=== PATIENT | male | born 1975 | race Caucasian/White ===

== ENCOUNTER 2017-01-23 18:00 | Observation (INO) | payer BC ==
[~2017-01-23] VITALS: Ht 185.4 cm; Wt 98.8 kg
[~2017-01-23 18:00] MED LIST: FLUO20CA35 PO; RTL20 PO; VITBC PO
[2017-01-23] MEDS ORDERED: CHOL100027 PO (19:00)
[2017-01-23] MEDS ORDERED: RIZA10TA18 PO (19:00)
[2017-01-23] MEDS ORDERED: CNC/36 PO (19:00)
[2017-01-23] MEDS ORDERED: OPTIRAY 320 IV PRN (19:45)
--- NOTE | 2017-01-23 20:00 | GASTROINTESTINAL CONSULTATION ---
DATE OF CONSULTATION: 01/23/2017 CHIEF COMPLAINT: Chest pain following esophageal dilation. HISTORY OF PRESENT ILLNESS: Mr. Fagan is a 41-year-old white male with a longstanding history of intermittent solid food dysphagia. Several years ago he underwent a barium study which suggested a possible Schatzki ring. The patient recalls symptoms at least from the time of his early 20s and had been persistent. Despite this, he had no weight loss. The patient was referred for an outpatient esophageal assessment and dilation today which was performed by me at [facility] outpatient endoscopy center. During that time, patient was found to have features strongly suggestive of eosinophilic esophagitis with multiple rings, furrowing and narrowing from the mid to distal esophagus and most prominent in the distal esophageal region. This underwent dilation up to 42 La[address] Savary without difficulty and subsequent biopsies of the esophagus to diagnose eosinophilic esophagitis. The patient, following the procedure tolerated water well. Upon reaching home, he had mild chest discomfort and drank some milk for which he had increasing chest pain. At one point, he reports the pain as 9/10 chest pain with some shortness of breath associated with mostly due to the intensity of the pain. He contacted the endoscopy office who referred him to the Emergency Room for which he presented to [facility]. I subsequently received a phone call from Dr. Dave Mistry at [facility] ER with the following information. The patient was found to have stable vital signs and received narcotic analgesic for which a single dose controlled his pain. On CT imaging, there was suggestion of 2 tiny foci of what is believed to be extraluminal gas adjacent to the distal esophagus. There is also mild distal esophageal thickening. There is a question of additional luminal gas to the left of the esophagus posterior to the left atrium. There is also a small amount of debris in the upper esophagus. There is mild fat stranding in the distal mediastinum but there is no significant mediastinal fluid. The heart is normal in size. There is no evidence for pneumothorax or pleural effusion and only mild dependent atelectasis. No suspicious nodes were identified. There were 2 mildly enlarged lymph nodes in the region of the fundus, largest of 11 mm in size, which was felt to be probably reactive in nature. LABORATORY STUDIES: On admission included a normal sodium of 138, potassium 3.4, BUN and creatinine of 16 and 1.1. Liver tests were normal with total bilirubin 0.9, AST 26, ALT 47, albumin of 4.0, alkaline phosphatase 101. Amylase and lipase were normal at 39 and 141respectively Troponin level was less than 0.2. CPK-MB was 2.9. White count 10.0, hemoglobin 14.9, hematocrit 42.3, MCV is 83.5, platelets 279,000. The patient had received 2 doses of Dilaudid in the Emergency Room at [place] at 13:35 and again at 16:20, and with discussion he also received a dose of ciprofloxacin IV given the patient's PENICILLIN ALLERGY. Decision was made to transfer patient to the Emergency Room here at [facility] for further evaluation and at least admission for observation with additional imaging. PAST MEDICAL HISTORY: Overall limited and includes prior inguinal hernia repair, migraine headaches, ADD, esophageal stricture, and hernia repair. ALLERGIES: PENICILLIN WHICH PRODUCES A RASH. He has used other antibiotics in the past but does not recall the names. HOME MEDICATIONS: Include fluoxetine, Concerta, vitamin B complex, vitamin D oral, and rizatriptan benzoate orally as needed. SOCIAL HISTORY: The patient denies tobacco or alcohol. He is and is accompanied by his spouse this evening. There has been no foreign travel. REVIEW OF SYSTEMS: Otherwise noncontributory based on 14-point exam except for mentioned above. There is no significant family history for gastrointestinal disorders. PHYSICAL EXAMINATION: VITAL SIGNS: On transfer by ambulance, blood pressure 103/62, heart rate 68, respirations 18. GENERAL: The patient is awake, alert and oriented x3. HEENT: Oral mucosa is moist. Sclerae anicteric, conjunctivae moist. HEART: Normal S1, S2. LUNGS: Clear to auscultation without rales, rhonchi or wheezes. There is no pain on inspiration. There is no current chest pain. ABDOMEN: Soft, nontender, nondistended with normal active bowel sounds. There is no rebound or guarding. I do not appreciate hepatosplenomegaly. EXTREMITIES: Without clubbing, cyanosis or edema. RECTAL: Deferred at this time. The patient's disc for his CT scan is currently being uploaded. IMPRESSION AND PLAN: The patient with what appears to be eosinophilic esophagitis, developed chest pain a couple hours after esophageal dilation in midmorning today. The patient's intake has been water and milk only without solids. Presently, there is no report of fever. His white count is normal and he is resting comfortably without difficulty with pain or shortness of breath. The CT scan is noted above and this will be downloaded and reviewed by our radiologist. I believe it is prudent to cover patient with broad-spectrum antibiotics and we will plan for vancomycin, gentamicin and Flagyl until an oral contrast CT can assess the esophagus for perforation. If there is no evidence of perforation then we would continue IV fluids, correcting electrolytes, continue antibiotics for 24 hours and reassess with potential discharge tomorrow with no more than clear liquid diet for the next 72 hours. IV ggt of PPI while npo. However, if there is evidence of a perforation of any degree, I believe it is prudent to consider transferring patient to [place] for either continued observation or consideration of a covered esophageal stent to occlude any potential leak in the esophagus. We will keep patient n.p.o. We will discuss with the [facility] admitting service. All details of these recommendations are discussed with patient and his family and they understand and are agreeable to this plan. Further recommendations once the CT scan is available. EDGAR
--- NOTE | 2017-01-23 20:02 | DIAGNOSTIC IMAGING REPORT ---
CT OF THE CHEST WITH IV CONTRAST CLINICAL HISTORY: Painful swallowing status post esophageal dilatation. Possible microperforation. COMPARISON STUDY: Outside chest CT dated 01/23/2017 TECHNIQUE: Following the IV administration of 118. mL of Optiray-320, CT of the thorax was performed from the thoracic inlet to the lung bases. Images are reviewed in the axial, sagittal, and coronal planes. IV contrast was administered without complication. The patient was also administered water-soluble oral contrast. CT DOSE: 563.03 mGy.cm FINDINGS: Thyroid: Imaged portions of the thyroid gland are normal in appearance. Thoracic aorta: The thoracic aorta is normal in course and caliber, noting standard 3-vessel arch anatomy. No aneurysm or dissection is seen. Pulmonary vasculature: The pulmonary trunk is normal in caliber. There are no central filling defects identified to suggest pulmonary embolus. Note that this examination was not protocoled for the evaluation of pulmonary emboli. HEART: The heart is normal in size and configuration, without pericardial effusion. Lungs and pleural spaces: No significant pleural effusions are visualized. There are by basilar atelectatic changes. Mediastinum: There is no pathologic mediastinal lymphadenopathy. Adriana: There is no pathologic hilar adenopathy. Axilla: Clear. Upper abdomen: There are mildly enlarged lymph nodes at the level of the gastrohepatic ligament measuring up to 13 mm in short axis. There is no contrast extravasation. There is mild esophageal wall thickening most pronounced distally. There are few tiny air droplets within the upper thoracic esophagus which are likely intramural. Skeletal structures: There are no lytic or blastic osseous lesions. IMPRESSION: 1. Diffuse esophageal wall thickening 2. Small superior mediastinal air bubbles, which are felt to represent intramural esophageal air 3. No evidence of contrast extravasation 4. No significant pleural effusions 5. Bibasal atelectasis 6. Mild adenopathy at the level of the gastrohepatic ligament Electronically signed by: Don Humphreys M.D. 01/23/2017 8:00 PM Dictated Date/Time: 01/23/2017 7:54 PM
[2017-01-23] MEDS ORDERED: METRONIDAZOLE / NSS 500 MG in PREMIXED NSS 100 ML IV SCH (20:30)
--- NOTE | 2017-01-23 20:52 | History and Physical ---
History & Physical Date & Time of Service: Jan 23, 2017 at 20:43 Chief Complaint: Chest Pain Primary Care Physician: Edgar Bhandari D.O.Int.Med. History of Present Illness Source: patient The patient is a pleasant 41 year old gentleman with eosinophilic esophagitis, who presents today from [facility] ED. Earlier in the he had an EGD with esophageal dilatation done by Dr. Ray. The patient was discharged home in stable condition on clear liquid diet. He was doing fine until 2 hours later, when he experienced severe, sharp anterior chest pain, rated 8/10. The pain did no radiate. The pain was non-positional. There were no alleviating or exacerbating factors. The pain was not associated with exertion or relieved with rest. He went to [facility]. Labs were grossly normal except for mild hypokalemia at 3.4. A CT scan revealed suspected microperforation of the esophagus. He was transferred to [facility] ED for evaluation by Dr. Ray. Repeat CT in the ER did not reveal contrast extravasation, suggesting that there is no leak at this time. Currently, he states that his pain is slightly, improved to 5/10. Currently, he denies, nausea, vomiting, epigasric pain, diarrhea or constipation. He has not shortness of breath, palpitations, presyncope or lower extremity swelling. He has no history of CAD and is not a smoker. Past Medical/Surgical History Medical Problems: (1) Attention deficit hyperactivity disorder Status: Chronic Family History CAD Uncle has MS Social History Smoking Status: Never Smoker Smokeless Tobacco Use: No Alcohol Use: none Drug Use: none Marital Status: Housing status: lives with family Occupational Status: employed Allergies Coded Allergies: Penicillins (Verified Allergy, Mild, rash, 04/09/13) Home Medications Scheduled Cholecalciferol (Vitamin D 1000 Unit), 1,000 INTER.UNIT PO DAILY Fluoxetine (Prozac), 40 MG PO QPM Methylphenidate Hcl (Concerta), 36 MG PO QPM Rizatriptan Benzoate (Maxalt), 10 MG PO PRN UD Vitamin B Complex (Vitamin B Complex), 1 TAB PO DAILY Review of Systems A 10 point review of systems was negative unless stated above in the HPI. Physical Exam Vital Signs Date Time Temp Pulse Resp B/P Pulse Ox O2 Delivery O2 Flow Rate FiO2 01/23/17 19:57 57 16 111/71 96 Room Air 01/23/17 18:20 58 01/23/17 18:07 93 Room Air 01/23/17 18:07 96 Nasal Cannula 2.0 01/23/17 18:07 36.7 56 16 107/68 96 Nasal Cannula 2.0 General Appearance: WD/WN, no apparent distress Head: normocephalic, atraumatic Eyes: normal inspection, EOMI ENT: hearing grossly normal, pharynx normal Neck: supple, no adenopathy, no JVD Respiratory/Chest: lungs clear, no respiratory distress Cardiovascular: regular rate, rhythm, no gallop, no murmur Abdomen/GI: normal bowel sounds, non tender, soft Back: normal inspection, no CVA tenderness Extremities/Musculoskelatal: no calf tenderness, no pedal edema Neurologic/Psych: alert, normal mood/affect, oriented x 3 Skin: normal color, warm/dry, no rash Lymphatic: no adenopathy Diagnostics Laboratory Results Per transfer records from [facility] CBC - WBC 10 - Hb 14 - Hct 42 - Plt 279 BMP - Na 138 - K 3.4 - Cl 103 - CO2 28 - BUN 16 - Cr 1.1 - Glucose [address] OF THE CHEST WITH IV CONTRAST CLINICAL HISTORY: Painful swallowing status post esophageal dilatation. Possible microperforation. COMPARISON STUDY: Outside chest CT dated 01/23/2017 TECHNIQUE: Following the IV administration of 118. mL of Optiray-320, CT of the thorax was performed from the thoracic inlet to the lung bases. Images are reviewed in the axial, sagittal, and coronal planes. IV contrast was administered without complication. The patient was also administered water-soluble oral contrast. CT DOSE: 563.03 mGy.cm FINDINGS: Thyroid: Imaged portions of the thyroid gland are normal in appearance. Thoracic aorta: The thoracic aorta is normal in course and caliber, noting standard 3-vessel arch anatomy. No aneurysm or dissection is seen. Pulmonary vasculature: The pulmonary trunk is normal in caliber. There are no central filling defects identified to suggest pulmonary embolus. Note that this examination was not protocoled for the evaluation of pulmonary emboli. HEART: The heart is normal in size and configuration, without pericardial effusion. Lungs and pleural spaces: No significant pleural effusions are visualized. There are by basilar atelectatic changes. Mediastinum: There is no pathologic mediastinal lymphadenopathy. Adriana: There is no pathologic hilar adenopathy. Axilla: Clear. Upper abdomen: There are mildly enlarged lymph nodes at the level of the gastrohepatic ligament measuring up to 13 mm in short axis. There is no contrast extravasation. There is mild esophageal wall thickening most pronounced distally. There are few tiny air droplets within the upper thoracic esophagus which are likely intramural. Skeletal structures: There are no lytic or blastic osseous lesions. IMPRESSION: 1. Diffuse esophageal wall thickening 2. Small superior mediastinal air bubbles, which are felt to represent intramural esophageal air 3. No evidence of contrast extravasation 4. No significant pleural effusions 5. Bibasal atelectasis 6. Mild adenopathy at the level of the gastrohepatic ligament Electronically signed by: Don Humphreys M.D. 01/23/2017 8:00 PM Dictated Date/Time: 01/23/2017 7:54 PM EKG NSR, no ectopy or pauses, no ST or T wave changes (on EKG from [facility] Impression Assessment and Plan 41 year old male with eosinophilic esophagitis, with chest pain post-EGD dilatation. CT scan suggests intraluminal air in the esophagus without evidence of willi perforation or fluid leakage into mediastinum. Patient is currently hemodynamically stable and will be observed overnight with GI recommendation to follow. Our plan is as follows: Chest pain post-EGD - Secondary to micro-perforation; no evidence of willi perforation - Hemodynamically stable; no evidence of infection off labs from [place] - Keep NPO including meds - Antibiotic coverage Vancomycin, Gentamicin and Flagyl IV BMP to be repeated in house to allow for appropriate dosing as needed - Protonix infusion Hypokalemia - 3.4; no EKG abnormalities - Will repeat BMP and follow Depression - PO Meds on hold - Resume Prozac once patient is off NPO status Migraines - PO Meds on hold - Resume Maxalt PRN once patient is off NPO status ADHD - PO Meds on hold - Resume Concerta once patient is off NPO status DVT prophylaxis - SCD Code Status - Level I full Code Disposition - Med/Surg Resident Physician Supervision Note: Pt seen/examined independently. I discussed the case with the resident and agree with the findings and plan as documented in the note. Any exceptions or clarifications are listed here: relatively healthy 41 y/o M undergoing dysphagia eval - had outpt EGD which may be + for eosinophilic esophagitis. Pt developed CP following procedure and was evaluated at an outside hospital. CT findings suggested perforation and he was transferred to [facility]. A CT was repeated confirming emphysema likely related to a microperforation. OE AAO x 3 S1,2 R CTA NT, ND, BS+ P: Pt admitted with instructions for broad spectrum coverage Will be kept NPO and monitored for worsening - with evidence of worsening will transfer to [place] GI service consulted and have advised on the above Documented By: Ismael Ritter Level of Care Med/Surg Resuscitation Status FULL RESUSCITATION VTE Prophylaxis VTE Risk Assessment Done? Y/N: Yes Risk Level: Moderate Given or contraindicated: Treatment not indicated
[2017-01-23 20:53] VITALS: O2SAT 96; Ht 185.4 cm; Wt 98.8 kg
[2017-01-23] MEDS ORDERED: PANTOprazole INJ 80 MG in DEXTROSE 5% 100ML IV SCH (21:00)
[2017-01-23] MEDS: MoRPHine SULFATE 4 MG/ML 1 ML CARP\\VIAL IV PRN (21:10)
[2017-01-23] MEDS ORDERED: VANCOMYCIN CONSULT ACTIVE PRN (21:15)
[2017-01-23] MEDS ORDERED: VANCOMYCIN INJ 2,450 MG in SODIUM CHLORIDE 0.9% 500ML 500 ML IV SCH (21:15)
[2017-01-23] MEDS ORDERED: GENTAMICIN CONSULT ACTIVE PRN (21:15)
[2017-01-23] MEDS ORDERED: IV FLUIDS COMPLETED PRN (21:30)
[2017-01-23 21:31] VITALS: O2SAT 96
[2017-01-23 21:42] VITALS: BP 118/65; PULSE 51; TEMP 37; O2SAT 94
[2017-01-23] MEDS ORDERED: GENTAMICIN IV SCH (22:00)
[2017-01-23] MEDS ORDERED: DEXTROSE 5% IV SCH (22:00)
[2017-01-23] MEDS: PANTOprazole INJ 40 MG in DEXTROSE 5% 100ML IV SCH (22:28)
[2017-01-23 22:59] VITALS: BP 115/71; PULSE 51; TEMP 36.9; O2SAT 94
[2017-01-23 23:08] LABS: BUN/CREATININE RATIO 15.7 (10-20); CREATININE 0.9 mg/dl (0.60-1.40); POTASSIUM 3.7 mmol/L (3.5-5.1)
[2017-01-23 23:21] LABS: CALCIUM 8.6 mg/dl (8.5-10.1)
[2017-01-24] VITALS (7 sets, daily range): BP systolic 107–118; BP diastolic 66–69; PULSE 67–86; TEMP 37.3–38.1; O2SAT 93–95
[2017-01-24] MEDS ORDERED: GENTAMICIN IV ONE (01:00)
[2017-01-24] MEDS ORDERED: DEXTROSE 5% IV ONE (01:00)
[2017-01-24] MEDS: MoRPHine SULFATE 4 MG/ML 1 ML CARP\\VIAL IV PRN ×2 (02:25→07:25)
[2017-01-24] MEDS: ACETAMINOPHEN IV 100 ML IV PRN ×2 (03:03→21:40)
[2017-01-24] MEDS: PANTOprazole INJ 40 MG in DEXTROSE 5% 100ML IV SCH ×5 (03:11→23:52)
[2017-01-24 05:21] LABS: HEMATOCRIT 38.1 % (42-52); MEAN CELL VOLUME 86.8 fL (80-100); MEAN CORPUSCULAR HEMOGLOBIN 30.1 pg (25-34); MEAN CORPUSCULAR HGB CONC 34.6 g/dl (32-36); MEAN PLATELET VOLUME 9.4 fL (7.4-10.4); PLATELET COUNT 199 K/uL (130-400); RED BLOOD COUNT 4.39 M/uL (4.7-6.1); WHITE BLOOD COUNT 10.52 K/uL (4.8-10.8)
[2017-01-24 05:48] LABS: BUN/CREATININE RATIO 13.3 (10-20); CALCIUM 8.1 mg/dl (8.5-10.1); CREATININE 0.95 mg/dl (0.60-1.40); POTASSIUM 3.7 mmol/L (3.5-5.1)
[2017-01-24] MEDS: METRONIDAZOLE / NSS 500 MG in PREMIXED NSS 100 ML IV SCH ×3 (06:06→21:42)
[2017-01-24] MEDS: VANCOMYCIN INJ 1,500 MG in SODIUM CHLORIDE 0.9% 500ML 500 ML IV SCH ×3 (06:06→21:43)
--- NOTE | 2017-01-24 11:55 | DIAGNOSTIC IMAGING REPORT ---
TWO VIEW CHEST CLINICAL HISTORY: Atypical chest pain. Fever. FINDINGS: AP and lateral chest radiographs are compared to study dated 03/14/2016 and correlated with chest CT performed 01/23/2017. The heart is enlarged. The mediastinal contour is within normal limits. Small pleural effusions are identified on the lateral view. There are bibasilar airspace opacities. The upper lobes appear clear. There is no pneumothorax. The bony thorax appears intact. IMPRESSION: 1. Cardiac enlargement without radiographic evidence of congestive failure. 2. Small pleural effusions with bibasilar airspace opacities. This likely represents atelectasis. Clinical correlation will be required. Electronically signed by: Nir Yun M.D. 01/24/2017 11:54 AM Dictated Date/Time: 01/24/2017 11:52 AM
[2017-01-24] MEDS: D5W AND 1/2NSS + 20MEQ KCL 1,000 ML IV SCH ×2 (12:25→21:40)
--- NOTE | 2017-01-24 13:11 | Pharmacy Progress Note ---
Pharmacy Antibiotic Consult Date of Service: Jan 24, 2017. Pharmacy Dosing Scope Pharmacy is consulted to initiate Vancomycin, Gentamicin, & Flagyl IV dosing therapy, order appropriate labs and adjust drug dose/frequency. Subjective The patient is a 41 year old male admitted on Jan 23, 2017 at 20:26. Objective Height (Feet): 6 Height (Inches): 1.00 Weight (Kilograms): 98.800 Lab Results (24hrs): Laboratory Tests Test 01/23/17 22:42 01/24/17 04:56 BUN/Creatinine Ratio 15.7 13.3 Blood Urea Nitrogen 14 mg/dl 13 mg/dl Creatinine 0.90 mg/dl 0.95 mg/dl White Blood Count 10.52 K/uL Item Value Date Time Random Gentamicin Level 2.00 mcg/ml 01/24/17 1114 Assessment & Plan 41yo male initiated on broad spectrum IV antibiotics with Vancomycin + Gentamicin + Flagyl for eosinophilic esophagitis. Renal function WNL. Vancomycin: * Loading dose: Vancomycin 2,450mg (25mg/kg) IV X 1 dose then * Vancomycin 1,500mg (15mg/dl) IV every 8 hours * Goal trough level estimate: between 15 - 20 mcg/mL as recommended by IDSA for complicated infectio * Check trough level prior to 4th maintenance dose 01/25/17 @ 0600 Gentamicin: * Will use preferred dosing of "extended-interval" or "pulse" dosing as pt meets criteria based on renal function * Pt actual body weight is greater than 20% of IBW therefore will use adjusted body weight for gentamicin dosing * Administer Gentamicin 610mg (7mg/kg adj bw) x 1 dose and then check a random level ~ 10 hrs after dose to confirm dosing interval * Random level = 2mcg/ml --> per nomogram pt will require a Q24hr dosing interval * Continue Gentamicin 610mg IV Q24hrs Flagyl: * Dosing is not per pharmacy consult. * Currently receiving Flagyl 500mg IV Q 8hrs which is adequate. Pharmacy will continue to follow and will adjust dose/frequency as necessary. Thank you
--- NOTE | 2017-01-24 14:45 | GASTROINTESTINAL CONSULTATION ---
DATE OF CONSULTATION: 01/24/2017 TIME: 2:15 p.m. HISTORY OF PRESENT ILLNESS: I just spoke with Mrs. Fagan (phone number [phone]) regarding on update on Mr. Fagan. I did inform that Dr. Cleaning is rounding on the service today and was provided information regarding the course of events over the last 24 hours. I also had an opportunity to review this morning as well as throughout the day of the patient's by EMR. I did explain that overnight the patient had some fevers and was given Tylenol IV along with narcotics for control of his chest discomfort. This seems to help jesus the symptoms. There are no reports of shortness of breath and except for the temperature, his vital signs have been otherwise stable. Because of the overnight fever, I did recommend and ordered a PA and lateral chest x-ray which revealed mild atelectasis bilaterally along with mild cardiac enlargement and small pleural effusions with bilateral airspace opacity that likely reflect atelectasis with clinical correlation. IMAGING DATA: The patient's CT last night did also show evidence of bibasilar atelectatic changes without a significant effusion. There was no pathologic mediastinal adenopathy or hilar adenopathy. There was no evidence of contrast extravasation, although there was inflammation. The tiny airdrop was appeared to be intramural, in the wall of the thoracic esophagus, but not specifically representing mediastinal free air. IMPRESSION: The patient's said that he was given incentive spirometry for use today. Currently, he is afebrile and his vital signs are stable. PLAN AND RECOMMENDATIONS: I made the following recommendations: I believe it is prudent to continue n.p.o. status along with IV PPI and the antibiotics for another 24 hours. We will observe the patient's clinical status throughout the evening and would favor continued admission with reassessment tomorrow. If the patient is doing well without fever, has diminished pain, then we can consider slowly advancing with clear liquids and observe his response. If this is tolerated without significant pain, we can consider advancing diet slowly as tolerated. He will be eventually on a PPI b.i.d. orally for presumed eosinophilic esophagitis, although the biopsies are pending at this time. All of her questions were answered. Additional recommendations may be available once Dr. Cleaning has an opportunity to evaluate the patient. I also informed her that I would be extraction operator this weekend, if she has any questions. All questions answered to her satisfaction. EDGAR
--- NOTE | 2017-01-24 14:57 | Hospitalist Progress Note ---
Hospitalist Progress Note Date of Service Jan 24, 2017. Subjective Pt evaluation today including: conversation w/ patient, physical exam, chart review Still c/p chest discomfort Low grade fevers Medications Medications (Trade) Dose Ordered Sig/José Route Start Time Stop Time Status Last Admin Dose Admin Vancomycin HCl 1500 mg/Sodium Chloride 530 ml @ 200 mls/hr Q8H IV 01/24/17 06:00 02/03/17 05:59 01/24/17 13:44 200 MLS/HR Gentamicin Sulfate 610 mg/ Dextrose 115.25 ml @ 100 mls/ hr TODAY@0100 ONCE IV 01/24/17 01:00 01/24/17 02:09 DC 01/24/17 01:05 100 MLS/HR Metronidazole/Prmx (Flagyl / Nss/ Premixed Nss) 100 ml @ 100 mls/hr Q8@0400,1200,2000 IV 01/23/17 20:30 01/23/17 23:14 DC 01/23/17 22:31 100 MLS/HR Morphine Sulfate 4 mg 4 mg Q4H PRN IV 01/23/17 20:30 02/06/17 20:29 01/24/17 07:25 4 MG Pantoprazole Sodium 80 mg/ Dextrose 120 ml @ 480 mls/hr TODAY@2100 IV 01/23/17 21:00 01/23/17 21:14 DC 01/23/17 22:10 480 MLS/HR Pantoprazole Sodium 40 mg/ Dextrose 100 ml @ 20 mls/hr Q5H IV 01/23/17 21:15 02/22/17 21:14 01/24/17 13:44 20 MLS/HR Vancomycin HCl 2450 mg/Sodium Chloride 549 ml @ 200 mls/hr TODAY@2115 IV 01/23/17 21:15 01/24/17 01:00 DC 01/23/17 22:31 200 MLS/HR Metronidazole 500 mg/Prmx 100 ml @ 100 mls/hr Q8H IV 01/24/17 06:00 02/03/17 05:59 01/24/17 13:44 100 MLS/HR Acetaminophen 100 ml @ 400 mls/hr Q8H PRN IV 01/24/17 03:00 02/23/17 02:59 01/24/17 03:03 400 MLS/HR Potassium Chloride/Dextrose/ Sod Cl (D5W And 1/2nss + 20meq KCl) 1,000 ml @ 100 mls/hr Q10H IV 01/24/17 12:00 01/25/17 11:59 01/24/17 12:25 100 MLS/HR Objective Vital Signs Date Time Temp Pulse Resp B/P Pulse Ox O2 Delivery O2 Flow Rate FiO2 01/24/17 07:24 37.5 71 16 107/69 95 Room Air 01/24/17 04:00 37.6 01/24/17 03:54 38.0 86 16 117/66 93 Room Air 01/24/17 02:20 38.1 01/24/17 01:15 37.4 01/23/17 23:55 Room Air 01/23/17 22:59 36.9 51 15 115/71 94 Room Air 01/23/17 21:45 Room Air 01/23/17 21:42 37.0 51 16 118/65 94 Room Air 01/23/17 21:31 56 20 107/73 96 Room Air 01/23/17 20:53 96 Room Air 01/23/17 19:57 57 16 111/71 96 Room Air 01/23/17 18:20 58 01/23/17 18:07 93 Room Air 01/23/17 18:07 96 Nasal Cannula 2.0 01/23/17 18:07 36.7 56 16 107/68 96 Nasal Cannula 2.0 Laboratory Results Last 24 Hours Test 01/23/17 22:42 01/24/17 04:56 01/24/17 11:14 Sodium Level 139 mmol/L 138 mmol/L Potassium Level 3.7 mmol/L 3.7 mmol/L Chloride Level 103 mmol/L 105 mmol/L Carbon Dioxide Level 29 mmol/L 27 mmol/L Anion Gap 7.0 mmol/L 6.0 mmol/L Blood Urea Nitrogen 14 mg/dl 13 mg/dl Creatinine 0.90 mg/dl 0.95 mg/dl Est Creatinine Clear Calc Drug Dose 132.3 ml/min 125.3 ml/min Estimated GFR () 121.7 114.0 Estimated GFR (Non- 105.0 98.3 BUN/Creatinine Ratio 15.7 13.3 Random Glucose 95 mg/dl 95 mg/dl Calcium Level 8.6 mg/dl 8.1 mg/dl White Blood Count 10.52 K/uL Red Blood Count 4.39 M/uL Hemoglobin 13.2 g/dL Hematocrit 38.1 % Mean Corpuscular Volume 86.8 fL Mean Corpuscular Hemoglobin 30.1 pg Mean Corpuscular Hemoglobin Concent 34.6 g/dl RDW Standard Deviation 40.2 fL RDW Coefficient of Variation 12.5 % Platelet Count 199 K/uL Mean Platelet Volume 9.4 fL Random Gentamicin Level 2.00 mcg/ml Diagnostic Results CLINICAL HISTORY: Atypical chest pain. Fever. FINDINGS: AP and lateral chest radiographs are compared to study dated 03/14/2016 and correlated with chest CT performed 01/23/2017. The heart is enlarged. The mediastinal contour is within normal limits. Small pleural effusions are identified on the lateral view. There are bibasilar airspace opacities. The upper lobes appear clear. There is no pneumothorax. The bony thorax appears intact. IMPRESSION: 1. Cardiac enlargement without radiographic evidence of congestive failure. 2. Small pleural effusions with bibasilar airspace opacities. This likely represents atelectasis. Clinical correlation will be required. Electronically signed by: Nir Yun M.D. 01/24/2017 11:54 AM [~ rep ct add3]] CT OF THE CHEST WITH IV CONTRAST CLINICAL HISTORY: Painful swallowing status post esophageal dilatation. Possible microperforation. COMPARISON STUDY: Outside chest CT dated 01/23/2017 TECHNIQUE: Following the IV administration of 118. mL of Optiray-320, CT of the thorax was performed from the thoracic inlet to the lung bases. Images are reviewed in the axial, sagittal, and coronal planes. IV contrast was administered without complication. The patient was also administered water-soluble oral contrast. CT DOSE: 563.03 mGy.cm FINDINGS: Thyroid: Imaged portions of the thyroid gland are normal in appearance. Thoracic aorta: The thoracic aorta is normal in course and caliber, noting standard 3-vessel arch anatomy. No aneurysm or dissection is seen. Pulmonary vasculature: The pulmonary trunk is normal in caliber. There are no central filling defects identified to suggest pulmonary embolus. Note that this examination was not protocoled for the evaluation of pulmonary emboli. HEART: The heart is normal in size and configuration, without pericardial effusion. Lungs and pleural spaces: No significant pleural effusions are visualized. There are by basilar atelectatic changes. Mediastinum: There is no pathologic mediastinal lymphadenopathy. Adriana: There is no pathologic hilar adenopathy. Axilla: Clear. Upper abdomen: There are mildly enlarged lymph nodes at the level of the gastrohepatic ligament measuring up to 13 mm in short axis. There is no contrast extravasation. There is mild esophageal wall thickening most pronounced distally. There are few tiny air droplets within the upper thoracic esophagus which are likely intramural. Skeletal structures: There are no lytic or blastic osseous lesions. IMPRESSION: 1. Diffuse esophageal wall thickening 2. Small superior mediastinal air bubbles, which are felt to represent intramural esophageal air 3. No evidence of contrast extravasation 4. No significant pleural effusions 5. Bibasal atelectasis 6. Mild adenopathy at the level of the gastrohepatic ligament Electronically signed by: Don Humphreys M.D. 01/23/2017 8:00 PM Dictated Date/Time: 01/23/2017 7:54 PM Assessment and Plan 41 year old male with eosinophilic esophagitis, with chest pain post-EGD dilatation. CT scan suggests intraluminal air in the esophagus without evidence of willi perforation or fluid leakage into mediastinum. Patient is currently hemodynamically stable and will be observed overnight with GI recommendation to follow. Our plan is as follows: Chest pain post-EGD - Secondary to micro-perforation; no evidence of willi perforation - Hemodynamically stable; no evidence of infection off labs from [facility] - Keep NPO including meds, start clears when ok with GI. GI input appreciated - Antibiotic coverage Vancomycin, Gentamicin and Flagyl IV - Protonix infusion Depression - PO Meds on hold - Resume Prozac once patient is off NPO status Migraines - PO Meds on hold - Resume Maxalt PRN once patient is off NPO status ADHD - PO Meds on hold - Resume Concerta once patient is off NPO status DVT prophylaxis - SCD Code Status - Level I full Code
[2017-01-24] MEDS ORDERED: LIDOCAINE HCL 2% VISC SOLN 20 ML UDC PO PRN (15:45)
--- NOTE | 2017-01-24 15:53 | PROGRESS NOTE ---
DATE: 01/24/2017 SUBJECTIVE: The patient continues to complain of chest pain. He is taking just ice chips and otherwise is n.p.o. OBJECTIVE: His vital signs are normal. Temperature is 37.6, blood pressure is 118/69, pulse 81 regular, room air saturation 94%. IMAGING DATA: Chest x-ray today was normal. There was no evidence of free air in the mediastinum. LABORATORY DATA: Shows a white count of 10.52, hemoglobin 13.2. IMPRESSION AND PLAN: The patient had esophageal dilation followed by pain in the chest and some air in the esophagus. The patient is doing relatively well on conservative measures. He continues to be n.p.o. and on IV fluids and antibiotics. I plan on adding some viscous Xylocaine orally to help soothe his esophagus and reduce some of his pain. Dr. Ray will be covering this weekend.
[2017-01-25] MEDS: PANTOprazole INJ 40 MG in DEXTROSE 5% 100ML IV SCH ×3 (04:31→15:07)
[2017-01-25] MEDS ORDERED: DEXTROSE 5% IV SCH (05:00)
[2017-01-25] MEDS ORDERED: GENTAMICIN IV SCH (05:00)
[2017-01-25] MEDS ORDERED: VANCOMYCIN TROUGH SCH (05:30)
[2017-01-25] MEDS: ACETAMINOPHEN IV 100 ML IV PRN (05:42)
[2017-01-25] MEDS: METRONIDAZOLE / NSS 500 MG in PREMIXED NSS 100 ML IV SCH ×2 (05:43→15:07)
[2017-01-25 05:59] LABS: BASO % 0.3 %; BASO ABS # 0.02 K/uL (0-0.2); COMPLETE YES; EOS % 0.7 %; HEMATOCRIT 36.9 % (42-52); IG% 0.1 %; LYMPH % 15.9 %; LYMPH ABS # 1.09 K/uL (1.2-3.4); MEAN CELL VOLUME 87.2 fL (80-100); MEAN CORPUSCULAR HEMOGLOBIN 30.3 pg (25-34); MEAN CORPUSCULAR HGB CONC 34.7 g/dl (32-36); MEAN PLATELET VOLUME 9.5 fL (7.4-10.4); MONO % 10.5 %; NEUT % 72.5 %; PLATELET COUNT 190 K/uL (130-400); RED BLOOD COUNT 4.23 M/uL (4.7-6.1); WHITE BLOOD COUNT 6.87 K/uL (4.8-10.8)
[2017-01-25] MEDS: VANCOMYCIN INJ 1,500 MG in SODIUM CHLORIDE 0.9% 500ML 500 ML IV SCH ×2 (06:12→15:07)
[2017-01-25 06:28] LABS: BUN/CREATININE RATIO 9.3 (10-20); CALCIUM 8.2 mg/dl (8.5-10.1); CREATININE 0.9 mg/dl (0.60-1.40); POTASSIUM 3.8 mmol/L (3.5-5.1)
[2017-01-25 06:31] LABS: ALB/GLOB RATIO 1.1 (0.9-2)
[2017-01-25 06:59] VITALS: BP 118/57; PULSE 63; TEMP 37.2; O2SAT 97
[2017-01-25] MEDS: D5W AND 1/2NSS + 20MEQ KCL 1,000 ML IV SCH (09:21)
--- NOTE | 2017-01-25 11:17 | Pharmacy Progress Note ---
Pharmacy Antibiotic Prog Note Date of Service Jan 25, 2017. Subjective The patient is currently receiving vancomycin 1500 mg iv q 8 hrs, gentamicin 610 mg daily, and flagyl 500 mg q 8 hrs The patient is currently on day # 2 of IV therapy. Objective Height (Feet): 6 Height (Inches): 1.00 Weight (Kilograms): 98.800 Levels: Item Value Date Time Vancomycin Level Trough 16.9 mcg/ml 01/25/17 0530 Lab Results (24hrs): Laboratory Tests Test 01/25/17 05:30 BUN/Creatinine Ratio 9.3 Blood Urea Nitrogen 8 mg/dl Creatinine 0.90 mg/dl White Blood Count 6.87 K/uL Red Blood Count 4.23 M/uL Hemoglobin 12.8 g/dL Hematocrit 36.9 % Mean Corpuscular Volume 87.2 fL Mean Corpuscular Hemoglobin 30.3 pg Mean Corpuscular Hemoglobin Concent 34.7 g/dl Platelet Count 190 K/uL Mean Platelet Volume 9.5 fL Neutrophils (%) (Auto) 72.5 % Lymphocytes (%) (Auto) 15.9 % Monocytes (%) (Auto) 10.5 % Eosinophils (%) (Auto) 0.7 % Basophils (%) (Auto) 0.3 % Neutrophils # (Auto) 4.98 K/uL Lymphocytes # (Auto) 1.09 K/uL Monocytes # (Auto) 0.72 K/uL Eosinophils # (Auto) 0.05 K/uL Basophils # (Auto) 0.02 K/uL Assessment & Plan Patient on vancomycin, gentamicin, and flagyl for eosinophilic esophagitis. Vancomycin: * Trough level this am was therapeutic at ~17 mcg/ml (goal 15-20 mcg/ml) * Will continue with current regimen of 1500 mg iv q 8 hrs * Scr remains stable, CrCl >120 ml/min Gentamicin: * dose appropriate based upon nomogram/random level; continue with same Pharmacy will continue to follow and will adjust dose/frequency as necessary. Thank you
--- NOTE | 2017-01-25 14:00 | GASTROENTEROLOGY PROGRESS NOTE ---
DATE: 01/25/2017 SUBJECTIVE: The patient did well overnight, did not have any temperature spikes, has no further chest pain for approximately 24 hours, although remains n.p.o. He is on IV fluids, triple antibiotics prophylactically for his initial presentation to [facility] and here following the EGD dilation with presumed eosinophilic esophagitis. The patient is hungry and would like to advance his diet if possible. LABORATORY STUDIES: Today's white count on January 25 is 6.8 with hemoglobin of 12.8 and 36.9, platelets 190,000. His BUN and creatinine are 8 and 0.9. Potassium is normal at 3.8. LFTs are normal. Calcium is slightly low at 8.2. Gentamicin and vancomycin levels were noted. The patient has been using his incentive spirometry. REVIEW OF SYSTEMS: Otherwise noncontributory. The patient is passing urine and had scant bowel movements. The patient denies any cough, chest pain or shortness of breath and is resting comfortably in bed with his accompanying him in the chair. PHYSICAL EXAMINATION: Today, VITAL SIGNS: Blood pressure 118/57, respirations 16, pulse 63, temperature 37.2 and was 37.3 last night at 11:00 p.m. The patient is 97% on room air. GENERAL: The patient is awake, alert and oriented x3. HEENT: Sclerae are anicteric, conjunctiva moist. Oral mucosa moist. HEART: Normal S1, S2. LUNGS: Clear to auscultation. ABDOMEN: Soft, flat, nontender, nondistended with normal bowel sounds, no rebound or guarding. I do not appreciate hepatosplenomegaly. CHEST: There is no chest discomfort with palpation along the sternum. LUNGS: Clear to auscultation. EXTREMITIES: Without edema. IMPRESSION: The patient is status post EGD dilation with chest pain subsequent to the dilation. ER assessment at [place] suggested perhaps air in the mediastinum, although a followup oral contrast study later that evening at [facility] did not demonstrate evidence of extravasation or free air in the mediastinum. There was a suggestion of air in the intramural portion of the esophagus. I made the following recommendations. I believe it is reasonable to advance the patient's diet and begin with room temperature water to see if this is tolerated. He did not like the taste of viscous Xylocaine that was attempted yesterday. If this is tolerated, then he can advance to a full clear liquid diet that is absent of any citrus or acidic type component (citrus fruits, tomato sauces eventually). Later this afternoon a full liquid diet can be achieved and if again tolerated, a soft diet can be advanced. If this is tolerated, tentative discharge later this evening is reasonable. We will discontinue his IV antibiotic and change to oral version of Flagyl and ciprofloxacin. Cipro is 500 mg twice daily and Flagyl 250 mg 3 times daily, each for 5 days. In addition, the patient should be on omeprazole 40 mg twice daily. If the capsule is not well tolerated, the contents can be placed in applesauce and taken by this route. We would keep the patient on a soft diet for at least 48 hours upon discharge and then he can slowly advance to his baseline diet if tolerated and does not experience any chest pain, significant dysphagia or odynophagia.
[2017-01-25 14:55] VITALS: BP 131/82; PULSE 62; TEMP 37; O2SAT 96
[2017-01-25] MEDS ORDERED: NURSING VERBAL MED ORDER ONE (15:45)
[2017-01-25] MEDS ORDERED: RIZATRIPTAN BENZOATE 10 MG TAB PO ONE (17:45)
--- NOTE | 2017-01-25 17:49 | Hospitalist Progress Note ---
Hospitalist Progress Note Date of Service Jan 25, 2017. (Nir Deluna PA-C) Subjective Pt evaluation today including: conversation w/ patient, conversation w/ family , physical exam, chart review, lab review, review of studies Pain: Migraine headache - no other reported pain. 41 yo male admitted with esophageal stricture. Underwent EGD and esophageal dilatation with Dr. Ray. His impression is eosinophilic esophagitis. Patient reports having dysphagia for almost 20 years. Since procedure, patient is tolerating clear liquids. Will advance to full liquid diet and advance as tolerated. Change IV abx to oral. Patient with migraine headache X 2 days. Requesting Maxalt. No other acute complaints Constitutional: No fever Respiratory: No cough, No dyspnea on exertion, No hemoptysis, No shortness of breath, No sputum, No wheezing Cardiovascular: No chest pain Abdomen: No diarrhea, No nausea, No vomiting Musculoskeletal: No calf pain, No muscle pain Male : No hematuria Heme: No abnormal bleeding/bruising Skin: No rash All Other Systems: Reviewed and Negative (Nir Deluna PA-C) Medications Current Inpatient Medications Medications (Trade) Dose Ordered Sig/José Route Start Time Stop Time Status Last Admin Dose Admin Ioversol (Optiray 320) 111 ml UD PRN IV 01/23/17 19:45 01/27/17 19:44 Morphine Sulfate (MoRPHine SULFATE INJ) 4 mg Q4H PRN IV 01/23/17 20:30 02/06/17 20:29 01/24/17 07:25 4 MG Miscellaneous 1 ea 1 ea PRN PRN N/A 01/23/17 21:30 01/23/18 21:29 01/25/17 09:22 1 EA Acetaminophen (Ofirmev Iv) 100 ml @ 400 mls/hr Q8H PRN IV 01/24/17 03:00 02/23/17 02:59 01/25/17 05:42 400 MLS/HR Lidocaine HCl (Viscous Lidocaine 2% Soln) 20 ml Q4HWA PRN PO 01/24/17 15:45 02/23/17 15:44 01/24/17 19:10 20 ML Ciprofloxacin (Cipro Tab) 500 mg BID PO 01/25/17 21:00 01/30/17 09:01 Metronidazole (Flagyl Tab) 250 mg TID PO 01/25/17 21:00 01/30/17 14:01 Pantoprazole Sodium (Protonix Tab) 40 mg BID PO 01/25/17 21:00 02/24/17 20:59 Rizatriptan Benzoate (Maxalt Tab) 10 mg 2200 PRN PO 01/25/17 20:00 01/25/17 23:59 (Nir Deluna PA-C) Objective Vital Signs Date Time Temp Pulse Resp B/P Pulse Ox O2 Delivery O2 Flow Rate FiO2 01/25/17 14:55 37.0 62 16 131/82 96 Room Air 96.0 01/25/17 06:59 37.2 63 16 118/57 97 Room Air 01/24/17 23:00 37.3 67 18 114/67 95 Room Air 01/24/17 21:40 Room Air (Nir Deluna PA-C) Physical Exam Notes: GENERAL : No acute distress EYES: No icterus, gaze conjugate NOSE: No evidence of epistaxis MOUTH: No lesions or candidiasis NECK: Supple LUNGS: CTA B/L, no wheezes, rales or rhonchi HEART: Regular, rate controlled ABDOMEN: Soft, NT, ND, BS Present EXTREMITIES: No LE edema, pedal pulses intact NEURO: A&OX3 (Nir Deluna PA-C) Laboratory Results Last 24 Hours Test 01/25/17 05:30 White Blood Count 6.87 K/uL Red Blood Count 4.23 M/uL Hemoglobin 12.8 g/dL Hematocrit 36.9 % Mean Corpuscular Volume 87.2 fL Mean Corpuscular Hemoglobin 30.3 pg Mean Corpuscular Hemoglobin Concent 34.7 g/dl Platelet Count 190 K/uL Mean Platelet Volume 9.5 fL Neutrophils (%) (Auto) 72.5 % Lymphocytes (%) (Auto) 15.9 % Monocytes (%) (Auto) 10.5 % Eosinophils (%) (Auto) 0.7 % Basophils (%) (Auto) 0.3 % Neutrophils # (Auto) 4.98 K/uL Lymphocytes # (Auto) 1.09 K/uL Monocytes # (Auto) 0.72 K/uL Eosinophils # (Auto) 0.05 K/uL Basophils # (Auto) 0.02 K/uL RDW Standard Deviation 40.4 fL RDW Coefficient of Variation 12.6 % Immature Granulocyte % (Auto) 0.1 % Immature Granulocyte # (Auto) 0.01 K/uL Sodium Level 142 mmol/L Potassium Level 3.8 mmol/L Chloride Level 109 mmol/L Carbon Dioxide Level 27 mmol/L Anion Gap 6.0 mmol/L Blood Urea Nitrogen 8 mg/dl Creatinine 0.90 mg/dl Est Creatinine Clear Calc Drug Dose 132.3 ml/min Estimated GFR () 121.7 Estimated GFR (Non- 105.0 BUN/Creatinine Ratio 9.3 Random Glucose 107 mg/dl Calcium Level 8.2 mg/dl Total Bilirubin 0.6 mg/dl Aspartate Amino Transf (AST/SGOT) 15 U/L Alanine Aminotransferase (ALT/SGPT) 29 U/L Alkaline Phosphatase 82 U/L Total Protein 6.3 gm/dl Albumin 3.3 gm/dl Globulin 3.0 gm/dl Albumin/Globulin Ratio 1.1 Vancomycin Level Trough 16.9 mcg/ml (Nir Deluna PA-C) Diagnostic Results CT OF THE CHEST WITH IV CONTRAST CLINICAL HISTORY: Painful swallowing status post esophageal dilatation. Possible microperforation. COMPARISON STUDY: Outside chest CT dated 01/23/2017 TECHNIQUE: Following the IV administration of 118. mL of Optiray-320, CT of the thorax was performed from the thoracic inlet to the lung bases. Images are reviewed in the axial, sagittal, and coronal planes. IV contrast was administered without complication. The patient was also administered water-soluble oral contrast. CT DOSE: 563.03 mGy.cm FINDINGS: Thyroid: Imaged portions of the thyroid gland are normal in appearance. Thoracic aorta: The thoracic aorta is normal in course and caliber, noting standard 3-vessel arch anatomy. No aneurysm or dissection is seen. Pulmonary vasculature: The pulmonary trunk is normal in caliber. There are no central filling defects identified to suggest pulmonary embolus. Note that this examination was not protocoled for the evaluation of pulmonary emboli. HEART: The heart is normal in size and configuration, without pericardial effusion. Lungs and pleural spaces: No significant pleural effusions are visualized. There are by basilar atelectatic changes. Mediastinum: There is no pathologic mediastinal lymphadenopathy. Adriana: There is no pathologic hilar adenopathy. Axilla: Clear. Upper abdomen: There are mildly enlarged lymph nodes at the level of the gastrohepatic ligament measuring up to 13 mm in short axis. There is no contrast extravasation. There is mild esophageal wall thickening most pronounced distally. There are few tiny air droplets within the upper thoracic esophagus which are likely intramural. Skeletal structures: There are no lytic or blastic osseous lesions. IMPRESSION: 1. Diffuse esophageal wall thickening 2. Small superior mediastinal air bubbles, which are felt to represent intramural esophageal air 3. No evidence of contrast extravasation 4. No significant pleural effusions 5. Bibasal atelectasis 6. Mild adenopathy at the level of the gastrohepatic ligament Electronically signed by: Don Humphreys M.D. 01/23/2017 8:00 PM Dictated Date/Time: 01/23/2017 7:54 PM TWO VIEW CHEST CLINICAL HISTORY: Atypical chest pain. Fever. FINDINGS: AP and lateral chest radiographs are compared to study dated 03/14/2016 and correlated with chest CT performed 01/23/2017. The heart is enlarged. The mediastinal contour is within normal limits. Small pleural effusions are identified on the lateral view. There are bibasilar airspace opacities. The upper lobes appear clear. There is no pneumothorax. The bony thorax appears intact. IMPRESSION: 1. Cardiac enlargement without radiographic evidence of congestive failure. 2. Small pleural effusions with bibasilar airspace opacities. This likely represents atelectasis. Clinical correlation will be required. Electronically signed by: Nir Yun M.D. 01/24/2017 11:54 AM Dictated Date/Time: 01/24/2017 11:52 AM (Nir Deluna PA-C) Assessment and Plan EOSINOPHILIC ESOPHAGITIS EGD done in [place] with question of esophageal perforation Repeat CT scan done at [facility] showed no extravasation of CT dye Patient seen by Dr. Ray - appreciate his input Advance diet as tolerated to a soft diet Maintain soft diet for at least 48 hours and then advance to normal diet as tolerated Follow-up outpatient with Dr. Ray Metronidazole and ciprofloxacin by mouth for five days and stop Omeprazole 40 mg by mouth twice a day until changed by GI Culture with recurrent chest pain, significant dysphagia, odynophagia MIGRAINE HEADACHES Maxalt 10 mg oral dissolving tablet per instructions GI PROPHYLAXIS Omeprazole DVT PROPHYLAXIS Increase ambulation as tolerated Thank you for including us in the care of this patient. Please refer to Dr. Aquino's addendum for further recommendations Discharge planning: home (Nir Deluna PA-C) Reviewed: Pt Seen/Exam by Me (Grace Aquino MD) History Please see discharge summary done on the same day (Grace Aquino MD)
[2017-01-25 19:16] VITALS: BP 131/82; PULSE 62; TEMP 37; O2SAT 96
[2017-01-25] MEDS ORDERED: MTR250 PO (19:29)
[2017-01-25] MEDS ORDERED: OMEP1POW2 PO (19:29)
[2017-01-25] MEDS ORDERED: CPR500 PO (19:29)
--- NOTE | 2017-01-25 19:30 | Discharge Summary ---
Discharge Summary Date of Service Jan 25, 2017. (Nir Deluna PA-C) Discharge Summary Admission Date: Jan 23, 2017 at 20:26 Discharge Date: Jan 25, 2017 Discharge Disposition: Home Principal Diagnosis: Mediastinal pneumonitis Problems/Secondary Diagnoses: Eosinophilic esophagitis Esophageal stricture Procedures: CT chest Chest x-ray Peripheral IV placement Infusion of IV antibiotics Consultations: Gastroenterology - Dr. Ray (Nir Deluna PA-C) Medication Reconciliation New Medications: Omeprazole (Bulk) (Omeprazole) 1 Pow Pow 40 MG PO BID for 30 Days, #60 TAB Ciprofloxacin (Ciprofloxacin HCl) 500 Mg Tab 500 MG PO BID for 5 Days, #10 TAB Metronidazole (Metronidazole) 250 Mg Tab 250 MG PO TID for 5 Days, #15 TAB Continued Medications: Cholecalciferol (Vitamin D 1000 Unit) 1,000 Unit Cap 1000 INTER.UNIT PO DAILY, CAP Fluoxetine (Prozac) 20 Mg Cap 40 MG PO QPM, CAP Methylphenidate Hcl (Concerta) 36 Mg Tab 36 MG PO QPM, TAB Rizatriptan Benzoate (Maxalt) 10 Mg Tab 10 MG PO PRN UD for Migraine, TAB Vitamin B Complex (Vitamin B Complex) 1 Tab Tab 1 TAB PO DAILY Discharge Exam Physical Exam Notes: GENERAL : No acute distress EYES: No icterus, gaze conjugate NOSE: No evidence of epistaxis MOUTH: No lesions or candidiasis NECK: Supple LUNGS: CTA B/L, no wheezes, rales or rhonchi HEART: Regular, rate controlled ABDOMEN: Soft, NT, ND, BS Present EXTREMITIES: No LE edema, pedal pulses intact NEURO: A&OX3 (Nir Deluna PA-C) Hospital Course Patient transferred to [facility] from [facility] for question of mediastinal free air status post esophageal dilatation. Repeat CT scan at [facility] showed some very small air bubbles that appeared to be intramural. There is no evidence of free air or extravasation of IV contrast on CT scan. Consultation was placed with Dr. Ray. No further intervention was required. Patient was started on IV antibiotics which were converted to oral and suggested be continued for five days as listed below. Patient also was advised to start omeprazole twice daily until follow-up with GI. Patient had peripheral IV placed for administration of IV antibiotics. He had no complications. Patient was tolerating full liquid diet at the time of discharge. He was advised to advance as tolerated to a soft diet for at least 48 hours before advancing to his regular diet. Patient was advised that if he had further chest pain or difficulty with dysphagia or odynophagia to report to the emergency department or to call Dr. Ray. Patient was seen with his . All questions were answered appropriately EOSINOPHILIC ESOPHAGITIS EGD done in [place] with question of esophageal perforation Repeat CT scan done at [facility] showed no extravasation of CT dye Patient seen by Dr. Ray - appreciate his input Advance diet as tolerated to a soft diet Maintain soft diet for at least 48 hours and then advance to normal diet as tolerated Follow-up outpatient with Dr. Ray Metronidazole and ciprofloxacin by mouth for five days and stop Omeprazole 40 mg by mouth twice a day until changed by GI Culture with recurrent chest pain, significant dysphagia, odynophagia MIGRAINE HEAD[employer]ES Maxalt 10 mg oral dissolving tablet per instructions GI PROPHYLAXIS Omeprazole DVT PROPHYLAXIS Increase ambulation as tolerated Thank you for including us in the care of this patient. Please refer to Dr. Aquino's addendum for further recommendations Total Time Spent: Greater than 30 minutes This includes examination of the patient, discharge planning, medication reconciliation, and communication with other providers. (Nir Deluna PA-C) Discharge Instructions Please refer to the electronic Patient Visit Report (Discharge Instructions) for additional information. (Nir Deluna PA-C) Follow-Up With gastroenterology as discussed with Dr. Ray (Nir Deluna PA-C) Reviewed: Pt Seen/Exam by Me (Grace Aquino MD) History Resident Physician Supervision Note: I interviewed and examined the patient. Discussed with JOSE Deluna and agree with findings and plan as documented in the note. Any exceptions or clarifications are listed here: Patient is doing very well on the day of discharge. He denied any chest pain all was tolerating a full liquid diet. He had no nausea or vomiting. She has VITALS reviewed No acute distress, alert awake oriented 3 Regular rate and rhythm no murmurs, rubs Clear to auscultation bilaterally no wheezes crackles or rhonchi Abdomen positive bowel sounds, nontender nondistended Extremities-no edema 41-year-old male here with eosinophilic esophagitis and stricture recently dilated, with concern for microperforation of the esophagus. He did not have a perforation of the esophagus on imaging here. -Doing very well, no residual symptoms, is tolerating full liquid diet as and is stable for discharge to home on antibiotics and PPI as above -He will go on a soft diet once he goes home and follow-up with GI within the next week By: Grace Aquino (Grace Aquino MD)
--- NOTE | 2017-01-25 19:36 | Discharge Instructions ---
Discharge Instructions Date of Service Jan 25, 2017. Admission Reason for Admission: Chest Pain/Eosinophilic Esophagitis Discharge Discharge Diagnosis / Problem: eosinophilic esophagitis Discharge Goals Goal(s): Improve disease control, Therapeutic intervention Activity Recommendations Activity Limitations: resume your previous activity Lifting Limitations: gradually increase as tolerated Exercise/Sports Limitations: until after follow-up appointment May Resume Sexual Activity: after follow-up appointment Shower/Bathe: no limitations Driving or Machine Use: resume 1 day after discharge Per discussion with Dr. Ray . Instructions / Follow-Up Instructions / Follow-Up Take new medications as directed Current Hospital Diet Patient's current hospital diet: Full Liquid Diet Discharge Diet Recommended Diet: Regular Diet Fluid Restriction: None Diet Texture: Mechanical Soft (ground) Procedures Procedures Performed: Placement of peripheral IV Pending Studies Studies pending at discharge: no Laboratory Results Last 24 Hours Test 01/25/17 05:30 White Blood Count 6.87 K/uL Red Blood Count 4.23 M/uL Hemoglobin 12.8 g/dL Hematocrit 36.9 % Mean Corpuscular Volume 87.2 fL Mean Corpuscular Hemoglobin 30.3 pg Mean Corpuscular Hemoglobin Concent 34.7 g/dl Platelet Count 190 K/uL Mean Platelet Volume 9.5 fL Neutrophils (%) (Auto) 72.5 % Lymphocytes (%) (Auto) 15.9 % Monocytes (%) (Auto) 10.5 % Eosinophils (%) (Auto) 0.7 % Basophils (%) (Auto) 0.3 % Neutrophils # (Auto) 4.98 K/uL Lymphocytes # (Auto) 1.09 K/uL Monocytes # (Auto) 0.72 K/uL Eosinophils # (Auto) 0.05 K/uL Basophils # (Auto) 0.02 K/uL RDW Standard Deviation 40.4 fL RDW Coefficient of Variation 12.6 % Immature Granulocyte % (Auto) 0.1 % Immature Granulocyte # (Auto) 0.01 K/uL Sodium Level 142 mmol/L Potassium Level 3.8 mmol/L Chloride Level 109 mmol/L Carbon Dioxide Level 27 mmol/L Anion Gap 6.0 mmol/L Blood Urea Nitrogen 8 mg/dl Creatinine 0.90 mg/dl Est Creatinine Clear Calc Drug Dose 132.3 ml/min Estimated GFR () 121.7 Estimated GFR (Non- 105.0 BUN/Creatinine Ratio 9.3 Random Glucose 107 mg/dl Calcium Level 8.2 mg/dl Total Bilirubin 0.6 mg/dl Aspartate Amino Transf (AST/SGOT) 15 U/L Alanine Aminotransferase (ALT/SGPT) 29 U/L Alkaline Phosphatase 82 U/L Total Protein 6.3 gm/dl Albumin 3.3 gm/dl Globulin 3.0 gm/dl Albumin/Globulin Ratio 1.1 Vancomycin Level Trough 16.9 mcg/ml Medical Emergencies . Who to Call and When: Medical Emergencies: If at any time you feel your situation is an emergency, please call 911 immediately. . Follow-up with gastroenterology as directed Non-Emergent Contact Non-Emergency issues call your: Primary Care Provider, [employer] . . "Provider Documentation" section prepared by Nir Deluna. . VTE Core Measure Inpt VTE Proph given/why not?: Treatment not indicated [place] Drug Monitoring Program Search Results: no issues identified
[2017-01-25] MEDS ORDERED: RIZATRIPTAN BENZOATE 10 MG TAB PO PRN (20:00)
[2017-01-25] MEDS ORDERED: PANTOprazole SOD 40 MG TAB PO SCH (21:00)
[2017-01-25] MEDS ORDERED: CIPROFLOXACIN 500 MG TAB PO SCH (21:00)
[2017-01-25] MEDS ORDERED: METRONIDAZOLE 250 MG TAB PO SCH (21:00)
== END 2017-01-25 20:49 | disposition home or self-care (01) ==
LOC: ENRESERVTM → ENRESERVDT → EDBD 18:00 → C.EDC 18:04 → C.MSW 20:26
PROVIDERS: ADMIT Student in an Organized Health Care Education/Training Program; ATTEND Internal Medicine
DX: J18.9 Pneumonia, unspecified organism (principal); K20.0 Eosinophilic esophagitis; K22.2 Esophageal obstruction; E87.6 Hypokalemia; G43.909 Migraine, unspecified, not intractable, without status migrainosus; F32.9 Major depressive disorder, single episode, unspecified; F90.9 Attention-deficit hyperactivity disorder, unspecified type; Z82.49 Family history of ischemic heart disease and other diseases of the circulatory system

== ENCOUNTER → 2017-09-11 | Outpatient (CLI) | payer BC ==
[~2017-09-11] MED LIST changes: +CHOL100027 PO; +CNC/36 PO; +CPR500 PO; +MTR250 PO; +OMEP1POW2 PO; +RIZA10TA18 PO; -RTL20 PO
[2017-09-11 18:14] LABS: BASO % 0.3 %; BASO ABS # 0.03 K/uL (0-0.2); COMPLETE YES; EOS % 3.3 %; HEMATOCRIT 43.5 % (42-52); IG% 0.4 %; LYMPH ABS # 2.38 K/uL (1.2-3.4); MEAN CELL VOLUME 86.8 fL (80-100); MEAN CORPUSCULAR HEMOGLOBIN 30.3 pg (25-34); MEAN CORPUSCULAR HGB CONC 34.9 g/dl (32-36); MEAN PLATELET VOLUME 9.3 fL (7.4-10.4); MONO % 6.4 %; NEUT % 63.6 %; PLATELET COUNT 256 K/uL (130-400); RED BLOOD COUNT 5.01 M/uL (4.7-6.1); WHITE BLOOD COUNT 9.17 K/uL (4.8-10.8)
[2017-09-11 18:46] LABS: BLOOD UREA NITROGEN 19 mg/dl (7-18); BUN/CREATININE RATIO 18.2 (10-20); CALCIUM 8.7 mg/dl (8.5-10.1); CARBON DIOXIDE 31 mmol/L (21-32); CHLORIDE 107 mmol/L (98-107); CREATININE 1.05 mg/dl (0.60-1.40); GLUCOSE 85 mg/dl (70-99); POTASSIUM 4.1 mmol/L (3.5-5.1); SODIUM 140 mmol/L (136-145)
[2017-09-11 19:36] LABS: LYME DISEASE AB IGG NEG (NEG); LYME DISEASE AB IGM NEG (NEG)
== END | disposition home or self-care (01) ==
LOC: C.LAB 17:50
PROVIDERS: ATTEND Physician Assistant
DX: G43.909 Migraine, unspecified, not intractable, without status migrainosus (principal)

== ENCOUNTER → 2017-10-22 | Outpatient (CLI) | payer BC ==
--- NOTE | 2017-10-27 14:48 | POLYSOMNOGRAPH REPORT ---
CLINICAL DATA: A 42-year-old male with a BMI of 30, referred by Leatha Tello and Berta Tam for evaluation of possible sleep apnea. On the evening of 10/22/2017, a home sleep apnea test was performed using a [employer] type 3 monitor. His ESS was 17/24. RECORDING RESULTS: Total recording time was 10 hours. The patient's monitoring time and estimated sleep time was 8.2 hours. RESPIRATORY DATA: Mild sleep apnea was documented. The BENIGNO was 7.3. There were 14 obstructive apneic episodes and 46 hypopneic episodes. The longest respiratory event was 33 seconds. OXIMETRY DATA: Transient hypoxemia was seen. Oxygen nitish was 85%. Mean saturation was 92%. Time below 89% was 4 minutes. HEART RATE DATA: Heart rates ranged from 47-57 beats per minute. SNORING DATA: Snoring was recorded throughout the night. AERIAL PHOTOGRAPH INTERPRETER'S COMMENTS: The patient had snoring, primarily when he was on his back with some hypopneas and apneas. IMPRESSION: Mild sleep apnea/hypopnea with an BENIGNO of 7.3 with very mild nocturnal hypoxemia. RECOMMENDATIONS: The patient may benefit from use of an oral appliance, positional therapy, or a repeat sleep study with a CPAP/use of auto CPAP. Clinical correlation is needed. EDGAR
== END | disposition home or self-care (01) ==
LOC: C.NEUR 08:25
PROVIDERS: ATTEND Physician Assistant
DX: G47.30 Sleep apnea, unspecified (principal)